=== PATIENT | female | born 1965 | race Caucasian/White ===

== ENCOUNTER → 2023-12-24 10:53 | Outpatient (REF) | payer BC, SELFPAY | LOC: HWRAD 10:53 | PROVIDERS: ATTENDING PHYSICIAN Obstetrics & Gynecology; FAMILY PHYSICIAN Family Medicine | DX: Z12.31 Encounter for screening mammogram for malignant neoplasm of breast (principal); Z78.0 Asymptomatic menopausal state | CPT/HCPCS: 77063; 77067; 77080 ==

== ENCOUNTER → 2024-02-03 06:36 | Day surgery (SDC) | payer BC, SELFPAY | LOC: GI 06:36 | PROVIDERS: ATTENDING PHYSICIAN Internal Medicine Gastroenterology | DX: R12 Heartburn (principal); Z80.0 Family history of malignant neoplasm of digestive organs; K31.7 Polyp of stomach and duodenum | CPT/HCPCS: 43239; 88305 ==

== ENCOUNTER 2024-12-26 21:25 | Emergency (ER) | payer BC, SELFPAY ==
[2024-12-26 21:28] VITALS: BP 160/89
[2024-12-26 21:47] LABS: % Basophils 0.7 % (0-2); % Immature Granulocytes 0.2 % (0-0.5); % Lymphocytes 48.1 % (20.5-51.1); % Monocytes 8.5 % (1.7-9.3); % Neutrophils 40.5 % (42.2-75.2); Absolute Eosinophils 0.1 10^3/uL (0-0.7); Absolute Monocytes 0.5 10^3/uL (0.1-0.6); Absolute Neutrophils 2.5 10^3/uL (1.4-6.5); Hematocrit 39.8 % (37.0-47.0); Hemoglobin 13.5 g/dL (12.0-16.0); Mean Corp Hgb Conc. 33.9 g/dL (33.0-37.0); Mean Corpuscular Volume 91.5 fL (81.0-99.0); Mean Platelet Volume 10.2 fL (7.4-10.4); Nucleated Red Blood Cells % 0 %; Platelet Count 270 10^3/uL (130-400); Red Blood Cell Count 4.35 10^6/uL (4.20-5.40); Red Cell Dist. Width 12.6 % (11.5-14.5); White Blood Cell Count 6.2 10^3/uL (4.8-10.8)
[2024-12-26 22:06] LABS: ALT (SGPT) 27 U/L (0-35); AST (SGOT) 21 U/L (14-36); Albumin 4.3 g/dl (3.5-5.0); Alkaline Phosphatase 43 U/L (38-126); Blood Urea Nitrogen 24 mg/dl (7-17); Calcium 9.8 mg/dl (8.4-10.2); Carbon Dioxide 28 mmol/L (22-30); Chloride 105 mmol/L (98-107); Glucose 99 mg/dl (70-99); Sodium 139 mmol/L (135-145); Total Bilirubin 0.3 mg/dl (0.2-1.3); Total Protein 6.7 g/dl (6.3-8.2); eGFR > 60.00
[2024-12-26 22:12] LABS: HCG, Serum Qualitative Screen Negative; Troponin I 0.013 ng/ml
[2024-12-27 00:17] VITALS: BP 126/82
[2024-12-27 01:00] VITALS: BP 121/75
[2024-12-27] MEDS: MAALOX 30 PO (01:03)
[2024-12-27 01:26] LABS: Lipase 132 U/L (23-300)
[2024-12-27 01:43] LABS: Troponin I 0.022 ng/ml
--- NOTE | 2024-12-27 01:59 | ED.GENMED ---
History of Present Illness
<Batool Camilo NP - Last Filed: 12/27/24 19:06>
General
Chief Complaint: Chest Pain
Source: patient
Exam Limitations: none
Time Seen by Provider: 12/27/24 00:22
Nursing documentation reviewed up to this point in time: agreed with
History of Present Illness
History of Present Illness:
Patient to ED with complaint of chest pain. SHe states she was reclining and had a sudden onset of sharp right chest pain. SHe thought it may be gas so she stood up. States chest pain moved to the center of her chest and up t her neck. States
pain then moved back to her right chest. She reports that pain began to diminish on way to ED and now feels a small amt of mid sternal pressure. No associated N/V/diaphoresis. No SOB. Brought self to ED for eval.
Past History
<Batool Camilo NP - Last Filed: 12/27/24 19:06>
Past History
ED Past Medical History: Hypercholesterolemia, Psychiatric (Anxiety) and Other (Migraines, colon polyps)
ED Past Surgical History: and Orthopedic
Social History
Tobacco: Former smoker
Alcohol: None
Drug: None
Personal:
Living: with family
Employment: Employed
Review of Systems
<Batool Camilo NP - Last Filed: 12/27/24 19:06>
Review of Systems
Allergies reviewed?: Yes
All Other Systems: ROS reviewed and negative except as documented in HPI and ROS
Constitutional: Reports no symptoms
EENT: Reports no symptoms
Respiratory: Reports no symptoms
Cardiac: Reports chest pain (Sharp right chest pain, moved to center of chest and then returned to right side.)
ABD/GI: Reports no symptoms
: Reports no symptoms
Musculoskeletal: Reports no symptoms
Skin: Reports no symptoms
Neurological: Reports no symptoms
Psychiatric: Reports no symptoms
Phy Exam
<Batool Camilo NP - Last Filed: 12/27/24 19:06>
General Physical Exam
General Presentation: no apparent distress
General age: appears stated age
General Skin: warm and dry
General Habitus: normal
Cardiovascular Exam
Cardiovascular Exam: regular rate/rhythm and no edema
Pulmonary Exam
Pulmonary Exam: lungs clear and no respiratory distress
Gastrointestinal Exam
Gastrointestinal Exam: normal bowel sounds, non tender and soft
Musculoskeletal Exam
Musculoskeletal Exam: full ROM and neuro vasc intact
Skin Exam
Skin Exam: normal color, warm/dry and no rash
Psychiatric Exam
Psychiatric Exam: normal mood/affect
Scores
<Batool Camilo NP - Last Filed: 12/27/24 19:06>
Heart Score for Chest Pain Patients
STEMI patient?: No
History: Slightly or Non-Suspicious
ECG: Normal
Age: >45 - <65 years
Risk Factors: 1 or 2 Risk Factors
Troponin: </= Normal Limit
Heart Score for Chest Pain Patients: 2
Heart Score Risk: 2.5% MACE over next 6 weeks
Course
<Batool Camilo NP - Last Filed: 12/27/24 19:06>
Orders/Labs/Results
Orders:
Orders
12/26/24 21:28
Electrocardiogram (*1) Urgent
Reason for Study: Chest Pain
EKG- Treatment ONCE
Test Result ONCE
12/26/24 21:41
Complete Blood Count/With Diff Urgent
Comprehensive Metabolic Panel Urgent
HCG, Serum Qualitative Screen Urgent
Lipase Urgent
Troponin I Urgent
12/27/24 00:41
Add On- LAB Urgent
Tests Added?: lipase
12/27/24 00:44
Mag Hydrox/Al Hydrox/Simeth [Maalox] 30 ml Phenobarb/Hyoscy/Atropine/Scop [] 10 ml PO NOW
12/27/24 01:02
Mag Hydrox/Al Hydrox/Simeth [Maalox] 30 ml .ROUTE .STK-MED ONE
Phenobarb/Hyoscy/Atropine/Scop [] 10 ml .ROUTE .STK-MED ONE
12/27/24 01:14
Troponin I Urgent
12/27/24 03:20
Troponin I Urgent
Abnormal Lab Results
12/26/24
21:41
Neutrophils % 40.5 L %
(42.2-75.2)
BUN 24 H mg/dl
(7-17)
12/26/24 21:41
12/26/24 21:41
Vital Signs
Initial and Last Documented VS:
Initial Vital Signs
Temp Pulse Resp BP Pulse Ox
98.2 F 56 16 160/89 99
12/26/24 21:28 12/26/24 21:28 12/26/24 21:28 12/26/24 21:28 12/26/24 21:28
Last Documented Vital Signs
Temp Pulse Resp BP Pulse Ox
98.2 F 54 15 121/75 93
12/26/24 21:28 12/27/24 01:30 12/27/24 01:30 12/27/24 01:00 12/27/24 01:30
<Dee Santoyo, DO - Last Filed: 12/27/24 04:34>
Orders/Labs/Results
Orders:
Orders
12/26/24 21:28
Electrocardiogram (*1) Urgent
Reason for Study: Chest Pain
EKG- Treatment ONCE
Test Result ONCE
12/26/24 21:41
Complete Blood Count/With Diff Urgent
Comprehensive Metabolic Panel Urgent
HCG, Serum Qualitative Screen Urgent
Lipase Urgent
Troponin I Urgent
12/27/24 00:41
Add On- LAB Urgent
Tests Added?: lipase
12/27/24 00:44
Mag Hydrox/Al Hydrox/Simeth [Maalox] 30 ml Phenobarb/Hyoscy/Atropine/Scop [] 10 ml PO NOW
12/27/24 01:02
Mag Hydrox/Al Hydrox/Simeth [Maalox] 30 ml .ROUTE .STK-MED ONE
Phenobarb/Hyoscy/Atropine/Scop [] 10 ml .ROUTE .STK-MED ONE
12/27/24 01:14
Troponin I Urgent
12/27/24 03:20
Troponin I Urgent
Abnormal Lab Results
12/26/24
21:41
Neutrophils % 40.5 L %
(42.2-75.2)
BUN 24 H mg/dl
(7-17)
12/26/24 21:41
12/26/24 21:41
Vital Signs
Initial and Last Documented VS:
Initial Vital Signs
Temp Pulse Resp BP Pulse Ox
98.2 F 56 16 160/89 99
12/26/24 21:28 12/26/24 21:28 12/26/24 21:28 12/26/24 21:28 12/26/24 21:28
Last Documented Vital Signs
Temp Pulse Resp BP Pulse Ox
98.2 F 54 15 121/75 93
12/26/24 21:28 12/27/24 01:30 12/27/24 01:30 12/27/24 01:00 12/27/24 01:30
<Batool Camilo [employer] - Last Filed: 12/27/24 19:06>
*Pulse Oximetry
Patient hypoxic: no
*EKG
Interpretation: normal
Rate: normal
Rhythm: sinus
*Critical Care Note
Total Time (30-74mins, 75-104mins- exclusive of procedures): Not Applicable
<Batool Camilo NP - Last Filed: 12/27/24 19:06>
Update Note
Update Note:
Patient to ED with right sided sharp chest pain that moved to center of chest with position change, and then returned back to right side. Began to resolve on way to ED but still felt 'something' in center of chest when admitted to ED room. Given
greeen ray with resolution of pain. VSS, EKG NSR. Initial troponin 0.013, repeat 0.022. Patient still pain free. Case discussed with Dr. Santoyo. Will repeat troponin in 1 hour and reassess
ED Attending Note
<Batool Camilo NP - Last Filed: 12/27/24 19:06>
-
Portions of this chart may have been created with voice recognition software.� Occasional wrong word or��sound alike� substitutions may have occurred due to the inherent limitations of voice recognition software.
<Dee Santoyo DO - Last Filed: 12/27/24 04:34>
ED Attending Note
Patient seen and examined by attending physician: Yes
I performed a history and physical exam of patient and discussed management with resident, I reviewed resident's note and agree with documented findings and plan of care.: Yes
ED Attending Note:
This is a 59-year-old woman with history of hyperlipidemia, family history of CAD who presents with somewhat abrupt onset of lower substernal chest pain, sharp in nature that began after getting up out of her recliner. Chest pain radiated briefly
to her right chest then back to the center. She admits to 1 similar episode of chest pain in the past.
No personal history of CAD.
Chest pain resolving upon arrival to the ED and after GI cocktail pain has resolved without return.
59-year-old woman appears her stated age, bright and alert, pleasant, appears in no acute distress.
Heart is regular rate and rhythm without murmur nor rub.
Lungs are clear to auscultation.
Abdomen is soft without appreciable tenderness.
EKG is unremarkable showing normal sinus rhythm at 59, normal axis, normal intervals, no acute ST-T wave abnormalities.
Labs thus far unremarkable with initial troponin 0.013, second troponin 0.022. Although both within normal limits will recheck troponin to assess trend.
Will continue to observe for return of chest pain.
04:20
Patient remains chest pain-free and comfortable.
Repeat troponin is negative less than 0.012.
I suspect an element of GERD but with history of hyperlipidemia and family history of CAD will discharge to home with referral to our chest pain hotline.
Return precautions discussed.
Discharge Plan
Departure
Patient Disposition: Home (Routine Discharge)
Date of Disposition: 12/27/24
Time of Disposition: 04:26
Patient with high blood pressure during this ER visit?: No
Condition: Good
Discharge Problem:
acute nonspecific chest pain
Instructions: Chest Pain DCA Follow Up
Prescriptions:
No Action
venlafaxine [Effexor XR] 150 MG capsule,extended release 24hr
150 mg PO DAILY
prednisone 20 MG tablet
20 mg PO BID Qty: 14 0RF
oxycodone 5 MG tablet
5 mg PO Q4HPRN PRN (Reason: pain) Qty: 20 0RF
Referrals:
Ricky Schwartz DO [Family Provider] -
Interventions
Interventions:
*Risk Screen - Suicide Last Done: 12/26/24 21:28
*General Assessment Last Done: 12/26/24 21:28
*Neglect/Abuse Screening Last Done: 12/26/24 21:28
*ED- Fall Risk Assessment Last Done: 12/27/24 04:33
*ED COVID-19 Vaccine History Last Done: 12/26/24 21:28
*Nursing Disposition Last Done: 12/27/24 04:46
ED- Cardiac Assessment Last Done: 12/27/24 02:32
Discharge Date and Time
Discharge Date/Time: 12/27/24 04:46
Print Language: BERMUDIAN
[2024-12-27 04:01] LABS: Troponin I < 0.012 ng/ml
== END 2024-12-27 04:46 | disposition home or self-care (01) ==
LOC: EMR 21:25
PROVIDERS: Emergency Medicine; Nurse Practitioner; EMERGENCY PHYSICIAN Emergency Medicine; FAMILY PHYSICIAN Family Medicine
DX: R07.89 Other chest pain (principal); E78.00 Pure hypercholesterolemia, unspecified; F41.9 Anxiety disorder, unspecified; Z82.49 Family history of ischemic heart disease and other diseases of the circulatory system; Z86.0100 Personal history of colon polyps, unspecified; Z87.891 Personal history of nicotine dependence
CPT/HCPCS: 99283; 80053; 83690; 84484; 84703; 85025; 93005

== ENCOUNTER → 2025-02-19 12:39 | Outpatient (REF) | payer BC, SELFPAY | LOC: HWRCS 12:39 | PROVIDERS: ATTENDING PHYSICIAN Internal Medicine Cardiovascular Disease; FAMILY PHYSICIAN Family Medicine | DX: R07.9 Chest pain, unspecified (principal) | CPT/HCPCS: 93306 ==

== ENCOUNTER → 2025-03-18 07:42 | Outpatient (REF) | payer BC, SELFPAY | LOC: RCS 07:42 | PROVIDERS: ATTENDING PHYSICIAN Internal Medicine Cardiovascular Disease; FAMILY PHYSICIAN Family Medicine | DX: R07.9 Chest pain, unspecified (principal) | CPT/HCPCS: 93017 ==

== ENCOUNTER → 2025-04-29 08:24 | Outpatient (REF) | payer BC, SELFPAY | LOC: RCS 08:24 | PROVIDERS: ATTENDING PHYSICIAN Internal Medicine Cardiovascular Disease; FAMILY PHYSICIAN Family Medicine | DX: R07.9 Chest pain, unspecified (principal); R06.02 Shortness of breath; R94.39 Abnormal result of other cardiovascular function study | CPT/HCPCS: 93017; 93350 ==

== ENCOUNTER → 2025-07-07 13:29 | Outpatient (REF) | payer BC, SELFPAY | LOC: HWRAD 13:29 | PROVIDERS: ATTENDING PHYSICIAN Obstetrics & Gynecology; FAMILY PHYSICIAN Family Medicine | DX: D21.9 Benign neoplasm of connective and other soft tissue, unspecified (principal) | CPT/HCPCS: 76830; 76856 ==